=== PATIENT | female | born 1945 ===

== ENCOUNTER 2018-07-04 10:23 | Observation (INO) | payer MEDICARE, MEDICAID ==
[2018-07-04 10:24] VITALS: BMI 26.5
[2018-07-04] MEDS ORDERED: Albuterol-Ipratrop 3 mg / 0.5 (3 ml) UD INH STA ×3 (11:42→14:53)
[2018-07-04] MEDS ORDERED: Albuterol-Ipratrop 3 mg / 0.5 (3 ml) UD ONE ×2 (11:48→15:02)
--- NOTE | 2018-07-04 12:09 | ED PDOC ---
HPI: SOB/CHF/COPD Time Seen by Provider: 07/04/18 11:05 Chief Complaint (Nursing): Cough, Cold, Congestion Chief Complaint (Provider): Cough, Cold, Congestion History Per: Patient History/Exam Limitations: no limitations Onset/Duration Of Symptoms: Persistent (x2 weeks) Current Symptoms Are (Timing): Still Present Additional Complaint(s): 73 year old female with pmHx of asthma, aortic stenosis and lung carcinoid, presents to ED for an evaluation of cough, congestion, and shortness of breath persistently for 2 weeks. She was prescribed Albuterol, Zpack, Ventolin, and cough syrup with minimal relief. She denies any fever, chills, leg pain or swelling. PCP: Dr. Enrico Moore Past Medical History Reviewed: Historical Data, Nursing Documentation, Vital Signs Vital Signs: Last Vital Signs Temp 98.2 F 07/04/18 10:28 Pulse 81 07/04/18 10:28 Resp 19 07/04/18 10:28 BP 146/74 07/04/18 10:28 Pulse Ox 98 07/04/18 10:28 - Medical History PMH: Anxiety, Asthma, HTN Denies: Chronic Kidney Disease Other PMH: carcinoid - Surgical History Surgical History: Cholecystectomy - Family History Family History: States: Unknown Family Hx - Social History Current smoker - smoking cessation education provided: No Ex-Smoker (has not smoked in the last 12 months): No - Home Medications Home Medications: Ambulatory Orders Medication Instructions Recorded Losartan [Cozaar] 50 mg PO DAILY 05/15/14 PARoxetine [Paxil] 10 mg PO DAILY 05/15/14 Metoprolol Succinate XL [Toprol XL] 25 mg PO QPM 01/17/17 Albuterol Sulfate [Ventolin Hfa] 2 puff IH Q6 PRN 07/04/18 Cholecalciferol (Vitamin D3) 5,000 unit PO DAILY 07/04/18 [Vitamin D3] Montelukast [Singulair] 10 mg PO QPM 07/04/18 Promethazine HCl/Codeine 5 ml PO Q8 07/04/18 [Prometh-Codein 6.25-10 mg/5 ml] RX: Albuterol 0.083% [Albuterol 3 ml IH Q6 PRN 07/04/18 0.083% Inhal Laura (2.5 mg/3 ml) UD] Rosuvastatin Calcium [Crestor] 10 mg PO HS 07/04/18 clonazePAM [Klonopin] 0.5 mg PO DAILY 07/04/18 - Allergies Allergies/Adverse Reactions: Allergies Allergy/AdvReac Type Severity Reaction Status Date / Time No Known Allergies Allergy Verified 07/04/18 10:38 Review of Systems ROS Statement: Except As Marked, All Systems Reviewed And Found Negative Constitutional: Negative for: Fever, Chills ENT: Positive for: Nose Congestion Respiratory: Positive for: Cough, Shortness of Breath Musculoskeletal: Negative for: Leg Pain (or swelling) Physical Exam - Reviewed Nursing Documentation Reviewed: Yes Vital Signs Reviewed: Yes - Physical Exam Appears: Positive for: Non-toxic, No Acute Distress Head Exam: Positive for: ATRAUMATIC, NORMAL INSPECTION, NORMOCEPHALIC Skin: Positive for: Normal Color Eye Exam: Positive for: Normal appearance, EOMI, PERRL ENT: Positive for: Normal ENT Inspection. Negative for: Pharyngeal Erythema Neck: Positive for: Normal, Supple Cardiovascular/Chest: Positive for: Regular Rate, Rhythm, Chest Non Tender Respiratory: Positive for: Decreased Breath Sounds (tachypnea), Wheezing (expiratory bilaterally). Negative for: Respiratory Distress Gastrointestinal/Abdominal: Positive for: Normal Exam, Soft. Negative for: Tenderness Extremity: Positive for: Normal ROM (upper/lower). Negative for: Pedal Edema, Calf Tenderness Neurologic/Psych: Positive for: Alert, Oriented. Negative for: Motor/Sensory Deficits - Laboratory Results Result Diagrams: 07/04/18 12:00 07/04/18 12:00 - ECG O2 Sat by Pulse Oximetry: 98 (RA) Pulse Ox Interpretation: Normal - Progress Re-evaluation Time: 14:20 Condition: Re-examined, Unchanged Medical Decision Making Medical Decision Making: Initial Impression: Cough; Shortness of breath Differential Diagnosis: Asthma exacerbation, pneumonia, acute bronchitis R/O CHF Initial Plan: * Labs * EKG * CXR * Duoneb 3ml INH * Solu-medrol 125mg IVP Time: 13:23 CXR FINDINGS: LUNGS: The lungs are well inflated and clear. PLEURA: No pneumothorax or pleural effusion. CARDIOVASCULAR: The heart is normal in size. No aortic atherosclerotic calcifications present. OSSEOUS STRUCTURES: Within normal limits for the patient's age. VISUALIZED UPPER ABDOMEN: Normal. OTHER FINDINGS: None. IMPRESSION: No active pulmonary disease. Time: 14:17 Reviewed patient's labs and CXR. Will reassess patient. 1420 Discussed with hospitalist for admission. Scribe Attestation: Documented by Julieta Brady, acting as a scribe for Salma Allison MD. Provider Scribe Attestation: All medical record entries made by the Scribe were at my direction and personally dictated by me. I have reviewed the chart and agree that the record accurately reflects my personal performance of the history, physical exam, medical decision making, and the department course for this patient. I have also personally directed, reviewed, and agree with the discharge instructions and disposition. Disposition - Clinical Impression Clinical Impression: Asthma exacerbation - Patient ED Disposition Is Patient to be Admitted: Yes Doctor Will See Patient In The: ED Counseled Patient/Family Regarding: Studies Performed, Diagnosis - Disposition Disposition Time: 14:20 Condition: FAIR - Pt Status Changed To: Hospital Disposition Of: Inpatient - Admit Certification Admit to Inpatient:: After my assessment, the patient will require hospitalization for at least two midnights. This is because of the severity of symptoms shown, intensity of services needed, and/or the medical risk in this patient being treated as an outpatient. - POA Present On Arrival: None
[2018-07-04 12:19] LABS: ABG ALLEN TEST YES; ARTERIAL BLOOD GAS HCO3 23.5 mmol/L (21-28); ARTERIAL BLOOD GAS HEMOGLOBIN 13.6 g/dL (11.7-17.4); ARTERIAL BLOOD GAS O2 CAPACITY 18.2 mL/dL (16-24); ARTERIAL BLOOD GAS O2 CONTENT 18.2 ML/dL (15-23); ARTERIAL BLOOD GAS O2 SAT 100.2 % (95-98); ARTERIAL BLOOD GAS PCO2 34 mm/Hg (35-45); ARTERIAL BLOOD GAS PH 7.42 (7.35-7.45); ARTERIAL BLOOD GAS PO2 104 mm/Hg (80-100); ARTERIAL BLOOD GAS TCO2 23.1 mmol/L (22-28)
[2018-07-04 12:21] LABS: BASO # 0.1 K/uL (0.0-0.2); BASO % 2.5 % (0.0-2.0); EOS # 0.2 K/uL (0.0-0.7); EOS % 3.9 % (0.0-4.0); HEMOGLOBIN 13.5 g/dL (12.0-16.0); LYMPH # 1.2 K/uL (1.0-4.3); LYMPH % 27.4 % (20.0-40.0); MEAN CELL VOLUME 91.1 fl (81.0-99.0); MEAN CORPUSCULAR HEMOGLOBIN 29.4 pg (27.0-31.0); MEAN CORPUSCULAR HGB CONC 32.3 g/dL (33.0-37.0); MEAN PLATELET VOLUME 9.5 fl (7.2-11.7); MONO # 0.4 K/uL (0.0-0.8); NEUT # 2.6 K/uL (1.8-7.0); NEUT % 58.2 % (50.0-75.0); NRBC % 0.1 % (0.0-0.0); RBC 4.59 Mil/uL (3.80-5.20); RED CELL DISTRIBUTION WIDTH 14.3 % (11.5-14.5); WHITE BLOOD COUNT 4.4 K/uL (4.8-10.8)
[2018-07-04 12:27] LABS: BLOOD UREA NITROGEN 11 mg/dl (7-17); CALCIUM 10.5 mg/dL (8.4-10.2); GFR NON-AFRICAN AMERICAN > 60
[2018-07-04 12:36] LABS: B-TYPE NATRIURETIC PEPTIDE 161 pg/ml (0-900)
--- NOTE | 2018-07-04 13:27 | RAD ---
Date of service: 07/04/2018 PROCEDURE: CHEST RADIOGRAPH, 1 VIEW HISTORY: dyspnea COMPARISON: CT chest from 04/06/2017 FINDINGS: LUNGS: The lungs are well inflated and clear. PLEURA: No pneumothorax or pleural effusion. CARDIOVASCULAR: The heart is normal in size. No aortic atherosclerotic calcifications present. OSSEOUS STRUCTURES: Within normal limits for the patient's age. VISUALIZED UPPER ABDOMEN: Normal. OTHER FINDINGS: None. IMPRESSION: No active pulmonary disease.
[2018-07-04] MEDS ORDERED: Promethazine/Cod 6.25mg-10mg/5ml Syr UD PO STA (14:53)
[2018-07-04] MEDS ORDERED: Promethazine/Cod 6.25mg-10mg/5ml Syr UD ONE (15:01)
--- NOTE | 2018-07-04 18:22 | CARD ---
APPROVED REPORT Date of service: 07/04/2018 EKG Measurement Heart [id number] <Conclusion> Normal sinus rhythm Normal ECG
--- NOTE | 2018-07-04 18:35 | CP.PCM.HP ---
<Sharon John - Last Filed: 07/04/18 19:00> History of Present Illness - History of Present Illness History of Present Illness: This is 73 y/o F with PMH of HTN, mild intermittent controlled asthma (No medications use in last 5 years) and history of carcinoid right lung tumor admitted to [facility] for evaluation and treatment of bronchitis vs acute asthma exacerbation. As per patient, 5 years ago she had lung nodule resection and she hasnt had any asthma attack since. Patient started c/o cough, congestion and chest tightness since last 3 weeks, seen by PMD 3 weeks ago, Abx and albuterol pump was given to the patient. Patient finished course of Abx and using nebulizer four times a day but reports no improvment with her symptoms. Still c/o dry cough with chest tightness, no fever, chills, reports nigh time discomfort due to dry cough. Patient denies any dizziness, palpitation, blurred vision, abdominal pain, urinary symptoms or weakness. Reports feeling anxious after duoneb treatments. No albuterol use today PMH/PSH: HTN, mild intermittent controlled asthma (No medications use in last 5 years) and history of carcinoid right lung tumor (Resection in 2014) Allg: KNDA Meds: As per Med recs FH: + for asthma or uterine cancers SH: Denies any alcohol, smoking or drug use ROS: As per HPI ER course: 98.2 tm, HR 81, RR 19, 146/74, Spo2 98 on RA CBC: No WBC CMP: sig for Chloride 112 ABG was done CXR : No acute findings S/p Duoneb x3, Methylpred 125mg and Promethazine Present on Admission - Present on Admission Any Indicators Present on Admission: No Past Patient History - Past Medical History & Family History Past Medical History?: Yes - Past Social History Smoking Status: Never Smoked - CARDIAC Hx Hypertension: Yes - PULMONARY Hx Asthma: Yes - NEUROLOGICAL Hx Neurological Disorder: No - HEENT Hx HEENT Problems: Yes Hx Cataracts: Yes (IMMATURE LEFT EYE) Hx Glaucoma: Yes - RENAL Hx Chronic Kidney Disease: No - ENDOCRINE/METABOLIC Hx Endocrine Disorders: No - HEMATOLOGICAL/ONCOLOGICAL Hx Blood Disorders: No - INTEGUMENTARY Hx Dermatological Problems: No - MUSCULOSKELETAL/RHEUMATOLOGICAL Hx Musculoskeletal Disorders: No - GASTROINTESTINAL Hx Gastrointestinal Disorders: Yes Hx Irritable Bowel: Yes - GENITOURINARY/GYNECOLOGICAL Hx Genitourinary Disorders: Yes Hx Urinary Tract Infection: Yes - PSYCHIATRIC Hx Anxiety: Yes - SURGICAL HISTORY Hx Cholecystectomy: Yes - ANESTHESIA Hx Anesthesia: Yes Hx Anesthesia Reactions: No Hx Malignant Hyperthermia: No Meds Allergies/Adverse Reactions: Allergies Allergy/AdvReac Type Severity Reaction Status Date / Time No Known Allergies Allergy Verified 07/04/18 10:38 Physical Exam - Constitutional Appears: No Acute Distress Additional comments: Little anxious - Head Exam Head Exam: NORMAL INSPECTION - Eye Exam Eye Exam: EOMI, Normal appearance Pupil Exam: NORMAL ACCOMODATION - ENT Exam ENT Exam: Mucous Membranes Moist - Neck Exam Neck exam: Positive for: Normal Inspection - Respiratory Exam Respiratory Exam: Wheezes (Very scattered ), NORMAL BREATHING PATTERN. absent: Accessory Muscle Use, Chest Wall Tenderness, Decreased Breath Sounds, Prolonged Expiratory Phase - Cardiovascular Exam Cardiovascular Exam: REGULAR RHYTHM, +S1, +S2 - GI/Abdominal Exam GI & Abdominal Exam: Normal Bowel Sounds, Soft. absent: Diminished Bowel Sounds, Organomegaly, Tenderness - Extremities Exam Extremities exam: Positive for: normal capillary refill, normal inspection, pedal pulses present. Negative for: pedal edema, tenderness - Back Exam Back exam: NORMAL INSPECTION. absent: CVA tenderness (L), CVA tenderness (R) - Neurological Exam Neurological exam: Alert, CN II-XII Intact, Oriented x3 - Psychiatric Exam Psychiatric exam: Normal Affect - Skin Skin Exam: Dry, Intact, Normal Color, Warm Results - Vital Signs Recent Vital Signs: Last Vital Signs Temp 98.2 F 07/04/18 10:28 Pulse 81 07/04/18 10:28 Resp 19 07/04/18 10:28 BP 146/74 07/04/18 10:28 Pulse Ox 98 07/04/18 14:23 - Labs Result Diagrams: 07/04/18 12:00 07/04/18 12:00 Labs: Laboratory Results - last 24 hr 07/04/18 07/04/18 07/04/18 11:45 12:00 12:00 WBC 4.4 L RBC 4.59 Hgb 13.5 Hct 41.8 MCV 91.1 D MCH 29.4 MCHC 32.3 L RDW 14.3 Plt Count 252 MPV 9.5 Neut % (Auto) 58.2 Lymph % (Auto) 27.4 Stokes % (Auto) 8.0 Eos % (Auto) 3.9 Baso % (Auto) 2.5 H Neut # (Auto) 2.6 Lymph # (Auto) 1.2 Stokes # (Auto) 0.4 Eos # (Auto) 0.2 Baso # (Auto) 0.1 D-Dimer, Quantitative pCO2 34 L pO2 104 H HCO3 23.5 ABG pH 7.42 ABG Total CO2 23.1 ABG O2 Saturation 100.2 H ABG O2 Content 18.2 ABG Base Excess -1.7 ABG Hemoglobin 13.6 ABG Carboxyhemoglobin 2.7 H POC ABG HHb (Measured) -0.2 L ABG Methemoglobin 3.2 H ABG O2 Capacity 18.2 Gautam Test Yes A-a O2 Difference 3.0 Hgb O2 Saturation 94.3 L FiO2 21.0 Sodium 143 Potassium 4.6 Chloride 112 H Carbon Dioxide 22 Anion Gap 14 BUN 11 Creatinine 0.6 L Est GFR ( Amer) > 60 Est GFR (Non-Af Amer) > 60 Random Glucose 108 H Calcium 10.5 H Troponin I < 0.0120 NT-Pro-B Natriuret Pep 161 07/04/18 12:00 WBC RBC Hgb Hct MCV MCH MCHC RDW Plt Count MPV Neut % (Auto) Lymph % (Auto) Stokes % (Auto) Eos % (Auto) Baso % (Auto) Neut # (Auto) Lymph # (Auto) Stokes # (Auto) Eos # (Auto) Baso # (Auto) D-Dimer, Quantitative < 200 pCO2 pO2 HCO3 ABG pH ABG Total CO2 ABG O2 Saturation ABG O2 Content ABG Base Excess ABG Hemoglobin ABG Carboxyhemoglobin POC ABG HHb (Measured) ABG Methemoglobin ABG O2 Capacity Gautam Test A-a O2 Difference Hgb O2 Saturation FiO2 Sodium Potassium Chloride Carbon Dioxide Anion Gap BUN Creatinine Est GFR ( Amer) Est GFR (Non-Af Amer) Random Glucose Calcium Troponin I NT-Pro-B Natriuret Pep Assessment & Plan - Assessment and Plan (Free Text) Assessment: A/P: 73 y/o F with PMH of HTN, mild intermittent controlled asthma (No medications use in last 5 years) and history of carcinoid right lung tumor admitted to [facility] for evaluation and treatment of bronchitis vs acute asthma exacerbation. Acute exacerbation of Asthma vs Bronchitis - Acute - CXR: No acute changes - ABG reviewed - START Advar 1 puff Q12 - START Atrovent 0.5 Q6H - START Guaifenesin/Codeine 5ml PO Q6H - START Singulair 10mg PO HS - START Prednisone 40mg PO daily for 5 days - CT chest - Monitor saturation - FOllow up morning labs History of Carcinoid right lung tumor, s/p resection in 2015 - Follow up CT chest Hypertension - C/w home medications: Cozaar and Metoprolol Hyperlipidemia - C/w Crestor 10mg HS DVT PPX - SCD, Lovenox <Georges Boswell - Last Filed: 07/04/18 19:09> Results - Vital Signs Recent Vital Signs: Last Vital Signs Temp 98.1 F 07/04/18 18:49 Pulse 101 H 07/04/18 18:49 Resp 19 07/04/18 18:49 BP 136/76 07/04/18 18:49 Pulse Ox 99 07/04/18 18:49 - Labs Result Diagrams: 07/04/18 12:00 07/04/18 12:00 Labs: Laboratory Results - last 24 hr 07/04/18 07/04/18 07/04/18 11:45 12:00 12:00 WBC 4.4 L RBC 4.59 Hgb 13.5 Hct 41.8 MCV 91.1 D MCH 29.4 MCHC 32.3 L RDW 14.3 Plt Count 252 MPV 9.5 Neut % (Auto) 58.2 Lymph % (Auto) 27.4 Stokes % (Auto) 8.0 Eos % (Auto) 3.9 Baso % (Auto) 2.5 H Neut # (Auto) 2.6 Lymph # (Auto) 1.2 Stokes # (Auto) 0.4 Eos # (Auto) 0.2 Baso # (Auto) 0.1 D-Dimer, Quantitative pCO2 34 L pO2 104 H HCO3 23.5 ABG pH 7.42 ABG Total CO2 23.1 ABG O2 Saturation 100.2 H ABG O2 Content 18.2 ABG Base Excess -1.7 ABG Hemoglobin 13.6 ABG Carboxyhemoglobin 2.7 H POC ABG HHb (Measured) -0.2 L ABG Methemoglobin 3.2 H ABG O2 Capacity 18.2 Gautam Test Yes A-a O2 Difference 3.0 Hgb O2 Saturation 94.3 L FiO2 21.0 Sodium 143 Potassium 4.6 Chloride 112 H Carbon Dioxide 22 Anion Gap 14 BUN 11 Creatinine 0.6 L Est GFR ( Amer) > 60 Est GFR (Non-Af Amer) > 60 Random Glucose 108 H Calcium 10.5 H Troponin I < 0.0120 NT-Pro-B Natriuret Pep 161 07/04/18 12:00 WBC RBC Hgb Hct MCV MCH MCHC RDW Plt Count MPV Neut % (Auto) Lymph % (Auto) Stokes % (Auto) Eos % (Auto) Baso % (Auto) Neut # (Auto) Lymph # (Auto) Stokes # (Auto) Eos # (Auto) Baso # (Auto) D-Dimer, Quantitative < 200 pCO2 pO2 HCO3 ABG pH ABG Total CO2 ABG O2 Saturation ABG O2 Content ABG Base Excess ABG Hemoglobin ABG Carboxyhemoglobin POC ABG HHb (Measured) ABG Methemoglobin ABG O2 Capacity Gautam Test A-a O2 Difference Hgb O2 Saturation FiO2 Sodium Potassium Chloride Carbon Dioxide Anion Gap BUN Creatinine Est GFR ( Amer) Est GFR (Non-Af Amer) Random Glucose Calcium Troponin I NT-Pro-B Natriuret Pep Attending/Attestation - Attestation I have personally seen and examined this patient.: Yes I have fully participated in the care of the patient.: Yes I have reviewed all pertinent clinical information: Yes Notes (Text): Patient seen and examined with the resident, agree with above exacerbation of asthma - continue with breathing treatments States albuterol makes her tachycardic and anxious, will do Atrovent treatments Reporting a 2-3 week history of dry cough in the setting of prior history of benign lung tumor Will get a CT chest w/ and w/out contrast
[2018-07-04] MEDS ORDERED: Albuterol-Ipratrop 3 mg / 0.5 (3 ml) UD INH SCH (20:00)
[2018-07-04] MEDS ORDERED: Ipratropium 0.02% Inhal Soln (0.5 mg/2.5 ml) UD IH ONE (20:07)
[2018-07-04] MEDS ORDERED: Iohexol 300 100 ML IJ ONE (20:11)
[2018-07-04] MEDS ORDERED: Sodium Chloride 0.9% 50 ML IV ONE (20:12)
[2018-07-04] MEDS: Ipratropium 0.02% Inhal Soln (0.5 mg/2.5 ml) UD IH SCH (20:35)
[2018-07-04] MEDS: Fluticasone-Salmeterol 100-50mcg Diskus IH SCH (21:27)
[2018-07-04] MEDS ORDERED: Metoprolol Succinate 25 mg XL Tab PO SCH (22:46)
[2018-07-04] MEDS: guaiFENesin-Codeine 100-10mg/5ml Syrup (5 ml) UD PO SCH (23:11)
[2018-07-05] MEDS: Ipratropium 0.02% Inhal Soln (0.5 mg/2.5 ml) UD IH SCH ×3 (01:02→13:32)
[2018-07-05 03:28] VITALS: O2SAT 96
[2018-07-05 06:39] LABS: BASO % 0.3 % (0.0-2.0); HEMOGLOBIN 13.1 g/dL (12.0-16.0); LYMPH # 0.6 K/uL (1.0-4.3); LYMPH % 8.2 % (20.0-40.0); MEAN CELL VOLUME 88.8 fl (81.0-99.0); MEAN CORPUSCULAR HEMOGLOBIN 29.9 pg (27.0-31.0); MEAN CORPUSCULAR HGB CONC 33.7 g/dL (33.0-37.0); MEAN PLATELET VOLUME 9.7 fl (7.2-11.7); MONO # 0.3 K/uL (0.0-0.8); MONO % 4.6 % (0.0-10.0); NEUT # 6.1 K/uL (1.8-7.0); NEUT % 86.9 % (50.0-75.0); NRBC % 0.1 % (0.0-0.0); PLATELET COUNT 250 K/uL (130-400); RBC 4.38 Mil/uL (3.80-5.20); RED CELL DISTRIBUTION WIDTH 14.6 % (11.5-14.5); WHITE BLOOD COUNT 7.1 K/uL (4.8-10.8)
[2018-07-05 06:47] LABS: BLOOD UREA NITROGEN 13 mg/dl (7-17); CALCIUM 11.4 mg/dL (8.4-10.2); GFR NON-AFRICAN AMERICAN > 60
[2018-07-05] MEDS: guaiFENesin-Codeine 100-10mg/5ml Syrup (5 ml) UD PO SCH ×2 (07:08→10:09)
[2018-07-05 08:48] LABS: BANDS 1 % (0-2); BASOPHIL 1 % (0-2); LYMPHOCYTE 6 % (20-50); MONOCYTE 3 % (0-10); NEUTROPHIL 86 % (42-75); PLATELET ESTIMATE NORMAL (NORMAL); REACTIVE LYMPHOCYTES 3 % (0-0); TOTAL CELLS COUNTED 100
[2018-07-05] MEDS ORDERED: Pantoprazole 40 mg EC Tab PO SCH (09:00)
[2018-07-05] MEDS ORDERED: Cholecalciferol 1,000 INTLU TAB PO SCH (09:00)
[2018-07-05 09:06] VITALS: BP 183/76; PULSE 98; RESP 20; TEMP 97.8
[2018-07-05] MEDS: Fluticasone-Salmeterol 100-50mcg Diskus IH SCH (10:11)
--- NOTE | 2018-07-05 11:32 | CP.PCM.DIS ---
<Nikos Peres - Last Filed: 07/05/18 14:26> Provider - Provider Date of Admission: 07/04/18 15:07 Attending physician: Georges Boswell Time Spent in preparation of Discharge (in minutes): 30 Diagnosis - Discharge Diagnosis (1) Asthma exacerbation Status: Acute Hospital Course - Lab Results Lab Results: Most Recent Lab Values WBC 7.1 K/uL (4.8-10.8) D 07/05/18 05:45 RBC 4.38 Mil/uL (3.80-5.20) 07/05/18 05:45 Hgb 13.1 g/dL (12.0-16.0) 07/05/18 05:45 Hct 38.9 % (34.0-47.0) 07/05/18 05:45 MCV 88.8 fl (81.0-99.0) D 07/05/18 05:45 MCH 29.9 pg (27.0-31.0) 07/05/18 05:45 MCHC 33.7 g/dL (33.0-37.0) 07/05/18 05:45 RDW 14.6 % (11.5-14.5) H 07/05/18 05:45 Plt Count 250 K/uL (130-400) 07/05/18 05:45 MPV 9.7 fl (7.2-11.7) 07/05/18 05:45 Neut % (Auto) 86.9 % (50.0-75.0) H 07/05/18 05:45 Lymph % (Auto) 8.2 % (20.0-40.0) L 07/05/18 05:45 Baldwin % (Auto) 4.6 % (0.0-10.0) 07/05/18 05:45 Eos % (Auto) 0.0 % (0.0-4.0) 07/05/18 05:45 Baso % (Auto) 0.3 % (0.0-2.0) 07/05/18 05:45 Neut # (Auto) 6.1 K/uL (1.8-7.0) 07/05/18 05:45 Lymph # (Auto) 0.6 K/uL (1.0-4.3) L 07/05/18 05:45 Baldwin # (Auto) 0.3 K/uL (0.0-0.8) 07/05/18 05:45 Eos # (Auto) 0.0 K/uL (0.0-0.7) 07/05/18 05:45 Baso # (Auto) 0.0 K/uL (0.0-0.2) 07/05/18 05:45 Neutrophils % (Manual) 86 % (42-75) H 07/05/18 05:45 Band Neutrophils % 1 % (0-2) 07/05/18 05:45 Lymphocytes % (Manual) 6 % (20-50) L 07/05/18 05:45 Reactive Lymphs % 3 % (0-0) H 07/05/18 05:45 Monocytes % (Manual) 3 % (0-10) 07/05/18 05:45 Basophils % (Manual) 1 % (0-2) 07/05/18 05:45 Platelet Estimate Normal (NORMAL) 07/05/18 05:45 RBC Morphology Normal (NORMAL) 07/05/18 05:45 D-Dimer, Quantitative < 200 ng/mlDDU (0-230) 07/04/18 12:00 pCO2 34 mm/Hg (35-45) L 07/04/18 11:45 pO2 104 mm/Hg (80-100) H 07/04/18 11:45 HCO3 23.5 mmol/L (21-28) 07/04/18 11:45 ABG pH 7.42 (7.35-7.45) 07/04/18 11:45 ABG Total CO2 23.1 mmol/L (22-28) 07/04/18 11:45 ABG O2 Saturation 100.2 % (95-98) H 07/04/18 11:45 ABG O2 Content 18.2 ML/dL (15-23) 07/04/18 11:45 ABG Base Excess -1.7 mmol/L (-2.0-3.0) 07/04/18 11:45 ABG Hemoglobin 13.6 g/dL (11.7-17.4) 07/04/18 11:45 ABG Carboxyhemoglobin 2.7 % (0.5-1.5) H 07/04/18 11:45 POC ABG HHb (Measured) -0.2 % (0.0-5.0) L 07/04/18 11:45 ABG Methemoglobin 3.2 % (0.0-3.0) H 07/04/18 11:45 ABG O2 Capacity 18.2 mL/dL (16-24) 07/04/18 11:45 Gautam Test Yes 07/04/18 11:45 A-a O2 Difference 3.0 mm/Hg 07/04/18 11:45 Hgb O2 Saturation 94.3 % (95.0-98.0) L 07/04/18 11:45 FiO2 21.0 % 07/04/18 11:45 Sodium 137 mmol/l (132-148) 07/05/18 05:45 Potassium 4.8 MMOL/L (3.6-5.0) 07/05/18 05:45 Chloride 107 mmol/L (98-107) 07/05/18 05:45 Carbon Dioxide 20 mmol/L (22-30) L 07/05/18 05:45 Anion Gap 15 (10-20) 07/05/18 05:45 BUN 13 mg/dl (7-17) 07/05/18 05:45 Creatinine 0.7 mg/dl (0.7-1.2) 07/05/18 05:45 Est GFR ( Amer) > 60 07/05/18 05:45 Est GFR (Non-Af Amer) > 60 07/05/18 05:45 Random Glucose 145 mg/dL (65-105) H 07/05/18 05:45 Calcium 11.4 mg/dL (8.4-10.2) H 07/05/18 05:45 Troponin I < 0.0120 ng/mL (0.00-0.120) 07/04/18 12:00 NT-Pro-B Natriuret Pep 161 pg/ml (0-900) 07/04/18 12:00 - Hospital Course Hospital Course: 73 y/o female with a PMHx of Asthma and HTN was admitted for an acute asthma exacerbation. Pt was treated with loading dose of IV steroids and maddie-nebs every 4 hours. Pt never required supplemental PO2. Chest CT negative for acute pathology. After an uneventful hospital stay, the patient was discharged in stable condition on a course of PO steroids, Azithromycin, and started on Advair. Discharge Exam - Head Exam Head Exam: ATRAUMATIC, NORMAL INSPECTION, NORMOCEPHALIC - Eye Exam Eye Exam: EOMI, PERRL - Neck Exam Neck exam: Full Rom - Respiratory Exam Respiratory Exam: Clear to PA & Lateral, NORMAL BREATHING PATTERN, UNREMARKABLE. absent: Rales, Rhonchi, Wheezes - Cardiovascular Exam Cardiovascular Exam: REGULAR RHYTHM, RRR, +S1, +S2. absent: JVD, Rubs, Systolic Murmur - GI/Abdominal Exam GI & Abdominal Exam: Normal Bowel Sounds, Unremarkable - Extremities Exam Extremities exam: normal capillary refill, normal inspection - Neurological Exam Neurological exam: Alert, CN II-XII Intact, Oriented x3 - Psychiatric Exam Psychiatric exam: Normal Affect, Normal Mood - Skin Skin Exam: Dry, Intact Discharge Plan - Discharge Medications Prescriptions: RX: Azithromycin [Z-Johnnie] 250 mg PO DAILY #6 tab RX: Fluticasone/Salmeterol 100/50 [Advair Diskus 100/50] 1 puff IH Q12 30 Days #1 puff RX: predniSONE [predniSONE Tab] 20 mg PO DAILY #5 tab - Follow Up Plan Condition: STABLE Disposition: HOME/ ROUTINE Instructions: Asthma, Adult (DC) Additional Instructions: follow up with primary MD 1 week take meds as prescribed any worsening of symptoms return to ED for further evaluation and treatment Referrals: Enrico Moore [Family Provider] - Osman Munoz MD [Staff Provider] - <Marlyn Ventura - Last Filed: 07/05/18 16:06> Provider - Provider Date of Admission: 07/04/18 15:07 Attending physician: [place] [facility] - Lab Results Lab Results: Most Recent Lab Values WBC 7.1 K/uL (4.8-10.8) D 07/05/18 05:45 RBC 4.38 Mil/uL (3.80-5.20) 07/05/18 05:45 Hgb 13.1 g/dL (12.0-16.0) 07/05/18 05:45 Hct 38.9 % (34.0-47.0) 07/05/18 05:45 MCV 88.8 fl (81.0-99.0) D 07/05/18 05:45 MCH 29.9 pg (27.0-31.0) 07/05/18 05:45 MCHC 33.7 g/dL (33.0-37.0) 07/05/18 05:45 RDW 14.6 % (11.5-14.5) H 07/05/18 05:45 Plt Count 250 K/uL (130-400) 07/05/18 05:45 MPV 9.7 fl (7.2-11.7) 07/05/18 05:45 Neut % (Auto) 86.9 % (50.0-75.0) H 07/05/18 05:45 Lymph % (Auto) 8.2 % (20.0-40.0) L 07/05/18 05:45 Baldwin % (Auto) 4.6 % (0.0-10.0) 07/05/18 05:45 Eos % (Auto) 0.0 % (0.0-4.0) 07/05/18 05:45 Baso % (Auto) 0.3 % (0.0-2.0) 07/05/18 05:45 Neut # (Auto) 6.1 K/uL (1.8-7.0) 07/05/18 05:45 Lymph # (Auto) 0.6 K/uL (1.0-4.3) L 07/05/18 05:45 Baldwin # (Auto) 0.3 K/uL (0.0-0.8) 07/05/18 05:45 Eos # (Auto) 0.0 K/uL (0.0-0.7) 07/05/18 05:45 Baso # (Auto) 0.0 K/uL (0.0-0.2) 07/05/18 05:45 Neutrophils % (Manual) 86 % (42-75) H 07/05/18 05:45 Band Neutrophils % 1 % (0-2) 07/05/18 05:45 Lymphocytes % (Manual) 6 % (20-50) L 07/05/18 05:45 Reactive Lymphs % 3 % (0-0) H 07/05/18 05:45 Monocytes % (Manual) 3 % (0-10) 07/05/18 05:45 Basophils % (Manual) 1 % (0-2) 07/05/18 05:45 Platelet Estimate Normal (NORMAL) 07/05/18 05:45 RBC Morphology Normal (NORMAL) 07/05/18 05:45 D-Dimer, Quantitative < 200 ng/mlDDU (0-230) 07/04/18 12:00 pCO2 34 mm/Hg (35-45) L 07/04/18 11:45 pO2 104 mm/Hg (80-100) H 07/04/18 11:45 HCO3 23.5 mmol/L (21-28) 07/04/18 11:45 ABG pH 7.42 (7.35-7.45) 07/04/18 11:45 ABG Total CO2 23.1 mmol/L (22-28) 07/04/18 11:45 ABG O2 Saturation 100.2 % (95-98) H 07/04/18 11:45 ABG O2 Content 18.2 ML/dL (15-23) 07/04/18 11:45 ABG Base Excess -1.7 mmol/L (-2.0-3.0) 07/04/18 11:45 ABG Hemoglobin 13.6 g/dL (11.7-17.4) 07/04/18 11:45 ABG Carboxyhemoglobin 2.7 % (0.5-1.5) H 07/04/18 11:45 POC ABG HHb (Measured) -0.2 % (0.0-5.0) L 07/04/18 11:45 ABG Methemoglobin 3.2 % (0.0-3.0) H 07/04/18 11:45 ABG O2 Capacity 18.2 mL/dL (16-24) 07/04/18 11:45 Gautam Test Yes 07/04/18 11:45 A-a O2 Difference 3.0 mm/Hg 07/04/18 11:45 Hgb O2 Saturation 94.3 % (95.0-98.0) L 07/04/18 11:45 FiO2 21.0 % 07/04/18 11:45 Sodium 137 mmol/l (132-148) 07/05/18 05:45 Potassium 4.8 MMOL/L (3.6-5.0) 07/05/18 05:45 Chloride 107 mmol/L (98-107) 07/05/18 05:45 Carbon Dioxide 20 mmol/L (22-30) L 07/05/18 05:45 Anion Gap 15 (10-20) 07/05/18 05:45 BUN 13 mg/dl (7-17) 07/05/18 05:45 Creatinine 0.7 mg/dl (0.7-1.2) 07/05/18 05:45 Est GFR ( Amer) > 60 07/05/18 05:45 Est GFR (Non-Af Amer) > 60 07/05/18 05:45 Random Glucose 145 mg/dL (65-105) H 07/05/18 05:45 Calcium 11.4 mg/dL (8.4-10.2) H 07/05/18 05:45 Troponin I < 0.0120 ng/mL (0.00-0.120) 07/04/18 12:00 NT-Pro-B Natriuret Pep 161 pg/ml (0-900) 07/04/18 12:00 Attending/Attestation - Attestation I have personally seen and examined this patient.: Yes I have fully participated in the care of the patient.: Yes I have reviewed all pertinent clinical information, including history, physical exam and plan: Yes Notes (Text): 07/05/18 16:06 Seen examined and discussed with resident. Agree with findings and plan as above.
--- NOTE | 2018-07-05 12:00 | CT ---
Date of service: 07/04/2018 PROCEDURE: CT Chest without contrast HISTORY: Cough for 3 weeks, Hx of lung nodule COMPARISON: None available. TECHNIQUE: Contiguous axial images were obtained through the chest without intravenous contrast enhancement. Sagittal and coronal reconstructions were performed. Radiation dose: Total exam DLP = 449.74 mGy-cm. This CT exam was performed using one or more of the following dose reduction techniques: Automated exposure control, adjustment of the mA and/or kV according to patient size, and/or use of iterative reconstruction technique. FINDINGS: LUNGS: Multiple stable bilateral subcentimeter lung nodules for example a 3 millimeter nodule in the left upper lobe (3:15) is unchanged. A 3 millimeter nodule in the right lower lobe (3:67) is unchanged. Multiple digital nodules are unchanged. Biapical pleural parenchymal fibrosis. MEDIASTINUM: Unremarkable thoracic aorta. No aneurysm. Normal sized heart. Small pericardial effusion. No lymphadenopathy. Aortic calcifications. PLEURA: No pleural fluid. No pneumothorax. BONES: No fracture. No destructive lesion. UPPER ABDOMEN: Fatty liver. OTHER FINDINGS: None. IMPRESSION: Multiple stable subcentimeter bilateral lung nodules. Fatty liver. Small pericardial effusion.
[2018-07-05] MEDS ORDERED: Metoprolol Succinate 25 mg XL Tab PO SCH (18:00)
[2018-07-05] MEDS ORDERED: Enoxaparin 40 mg Syringe SC SCH (22:00)
--- NOTE | 2018-07-06 06:24 | PQF ---
PROVIDER RESPONSE TEXT: Mild intermittent REVIEWER QUERY TEXT: Asthma Specificity and Type Exacerbation of Asthma is documented in the Medical Record. Please specify the type of asthma if k nown: Such as: -- Mild intermittent -- Mild persistent -- Moderate persistent -- Severe persistent -- Other, please specify ---Unable to specify H and P includes: PMH/PSH: HTN, mild intermittent controlled asthma (No medications use in last 5 yea rs) and history of carcinoid right lung tumor (Resection in 2014) Impression: Exacerbation of Asthma Duoneb stat x 3->RQ6, Solumedrol IVP->Prednisone daily, Robitussin w/[place], Singulair , Atrovent, Advair Diskus,O2 NC The patient's Clinical Indicators include: -- Query created by: Heaven Guerra on 07/05/2018 11:10 AM Electronically signed by: Georges LANDRY 07/06/2018 6:22 AM
== END 2018-07-05 14:39 | disposition home or self-care (01) ==
LOC: H.ER 10:23 → H.ERHOLD 15:07 → INTOOBSV 15:07 → H.MEDSURG1 21:59
PROVIDERS: ADMIT Hospitalist; ATTEND Hospitalist
DX: J45.21 Mild intermittent asthma with (acute) exacerbation (principal); I35.0 Nonrheumatic aortic (valve) stenosis; F41.9 Anxiety disorder, unspecified; I10 Essential (primary) hypertension; E78.5 Hyperlipidemia, unspecified
CPT/HCPCS: 36415; 71045; 71270; 80048; 82803; 83880; 84484; 85025; 85378; 93005; 94640; 96374; 99285; G0378; J2930; Q9967